=== PATIENT | male | born 1965 | race Caucasian/White ===

== ENCOUNTER 2017-01-25 12:26 | Emergency (ER) | payer OTHER ==
[~2017-01-25] VITALS: Ht 180.3 cm; Wt 90.7 kg
--- NOTE | ~2017-01-25 | CR243 ---
[facility] A Service of [facility] RADIOLOGY TEXT RESULTS PATIENT: RACIEL RAMOS LOCATION: [facility] : 61 UNIT #: [id number] AGE: [address]: Xochilt Dietrich SEX: M ORDER DR: [id number] [facility] [address] [place], [place] [address] [id number] P MR#: [id number] Acc #: [id number] NAME: RACIEL RAMOS : 1965 SEX: M STUDY DATE/TIME: 01/25/2017 13:20 UNIT: [facility] ROOM: STUDY DESCRIPTION: CR Thoracic Spine 3 Views Attending Physician: Xochilt Dietrich Pa-C Ordering Physician: Xochilt Dietrich Pa-C Primary Care Physician: Primary Care Physician No MEDICAL IMAGING REPORT This report is preliminary unless electronic signature is present EXAM Thoracic spine 3 views 01/25/2017 HISTORY Thoracic back pain, mid and lower thoracic back pain for 2 weeks. No known injury. FINDINGS AP and lateral examination of the dorsal segment shows normal mineralization and a satisfactory anatomical dorsal kyphosis. All body heights, interspaces, and posterior elements are normal anatomically without any indication of malignancy, trauma, unusual paraspinal soft tissue density mass, or congenital defect. IMPRESSION Normal thoracic spine. Dictated by... Anand Starr M.D. THIS IS AN ELECTRONICALLY VERIFIED REPORT Anand Starr M.D. at 01/26/2017 10:36 AM OSCAR/ruby TD: 01/25/2017 13:35 JOB #: [id number] MEDICAL IMAGING REPORT Page 1 of 1 COPY
--- NOTE | ~2017-01-25 | CR181 ---
[facility] A Service of [facility] RADIOLOGY TEXT RESULTS PATIENT: RACIEL RAMOS LOCATION: [facility] : 61 UNIT #: [id number] AGE: [address]: Xochilt Dietrich SEX: M ORDER DR: [id number] [facility] [address] [place], [place] [address] [id number] P MR#: [id number] Acc #: [id number] NAME: RACIEL RAMOS : 1965 SEX: M STUDY DATE/TIME: 01/25/2017 13:16 UNIT: [facility] ROOM: STUDY DESCRIPTION: CR Lumbar Spine 2 or 3 Views Attending Physician: Xochilt Dietrich Pa-C Ordering Physician: Xochilt Dietrich Pa-C Primary Care Physician: Primary Care Physician No MEDICAL IMAGING REPORT This report is preliminary unless electronic signature is present EXAM Lumbar spine 3 views 01/25/2017 HISTORY Low back pain for 2 weeks. No known injury. FINDINGS Three views of the lumbar spine demonstrate no fracture. The posterior vertebral body line is intact and there is no anterolisthesis or retrolisthesis. The disc spaces are normally maintained. Small anterior osteophytes are seen within the lumbar spine and there is degenerative change involving the articular facets. 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 No acute abnormality. Dictated by... Anand Starr M.D. THIS IS AN ELECTRONICALLY VERIFIED REPORT Anand Starr M.D. at 01/26/2017 10:36 AM OSCAR/ruby TD: 01/25/2017 13:39 JOB #: [id number] MEDICAL IMAGING REPORT Page 1 of 1 COPY
[~2017-01-25 12:26] MED LIST: FLEXERIL10 M1 PO; ULTRAM PO; VOLTAREN75 MG PO
== END 2017-01-25 13:55 | disposition home or self-care (01) ==
LOC: CED 12:26 → CFTX 12:26
DX: S29.012A Strain of muscle and tendon of back wall of thorax, initial encounter (principal); S39.012A Strain of muscle, fascia and tendon of lower back, initial encounter; X58.XXXA Exposure to other specified factors, initial encounter; F17.210 Nicotine dependence, cigarettes, uncomplicated; Z79.899 Other long term (current) drug therapy
CPT/HCPCS: 72072; 72100; 96372; 99283; J1885; J2360